=== PATIENT | female | born 1990 | race African-American/Black ===

== ENCOUNTER 2019-01-14 05:15 | Inpatient (IN) ==
[2019-01-14] MEDS ORDERED: BUTORPHANOL 2 MG/ML VIAL IV PRN (05:34)
[2019-01-14] MEDS ORDERED: ONDANSETRON 4 MG/2 ML VIAL IV PRN (05:34)
[2019-01-14] MEDS ORDERED: MEPERIDINE 50 MG/1 ML VIAL IV PRN (05:34)
[2019-01-14] MEDS: LACTATED RINGERS 1,000 ML IV SCH ×2 (05:50→13:14)
[2019-01-14 06:14] LABS: Basophils # 0.1 10*3/uL (0.0-0.2); Basophils % 0.6 % (0.0-0.8); Eosinophils # 0.3 10*3/uL (0.0-0.87); Eosinophils % 2.1 % (0.00-10.9); Hematocrit 29.3 VOL% (35.7-47.0); Hemoglobin 9.1 GM/DL (12.0-16.0); Immature Granulocytes % 2.3 %; Immature Granulocytes Absolute 0.33 #; Lymphocytes # 2.8 10*3/uL (1.4-4.0); Lymphocytes % 19.6 % (21.3-54.2); Mean Corpuscular HGB Conc 31.1 GM/DL (32-36); Mean Platelet Volume 11.2 FL (9.6-12.0); Monocytes % 11.3 % (1.7-12.7); Neutrophils % 64.1 % (38.7-73.9); Platelet Count 268 T/CUMM (130-400); Red Blood Count 3.53 MC/CUMM (3.8-5.5); Red Cell Distribution Width 14.9 % (9.3-17.3); White Blood Count 14.5 T/CUMM (4-12)
[2019-01-14] MEDS: OXYTOCIN/LR 20 UNIT/1,000 ML BAG IV SCH ×2 (06:19→18:16)
[2019-01-14 06:47] LABS: Alanine Aminotransferase 19 U/L (13-56); Albumin 2.7 G/DL (3.4-5.0); Alkaline Phosphatase 106 U/L (45-117); Aspartate Amino Transferase 17 U/L (0-37); Bilirubin,Total < 0.39 MG/DL (0.2-1.0); Blood Urea Nitrogen 8 MG/DL (7-18); Calcium 8.6 MG/DL (8.5-10.1); Glucose 84 MG/DL (74-106); Osmolality,Calculated 269.8 MOS/KG (273-304); Total Protein 6.8 G/DL (6.4-8.3)
[2019-01-14] MEDS ORDERED: FAMOTIDINE 20 MG/2 ML VIAL IV ONE (09:23)
[2019-01-14] MEDS ORDERED: diphenhydrAMINE 50 MG/1 ML VIAL IV PRN ×2 (09:23)
[2019-01-14] MEDS ORDERED: ePHEDrine 50 MG/ML AMP IV PRN (09:23)
[2019-01-14] MEDS ORDERED: LACTATED RINGERS 1,000 ML IV ONE (09:23)
[2019-01-14] MEDS ORDERED: NALOXONE 0.4 MG/ML VIAL IV PRN (09:23)
[2019-01-14] MEDS ORDERED: CITRIC ACID/SODIUM CITRATE 30 ML UDCUP PO ONE (09:23)
[2019-01-14] MEDS ORDERED: fentaNYL 2 MCG/ROPIV 0.2% EPID 100 ML EPIDURAL SCH (09:30)
[2019-01-14] MEDS ORDERED: miSOPROStol 200 MCG TABLET ONE (14:11)
[2019-01-14] MEDS ORDERED: METHYLERGONOVINE 0.2 MG/1 ML AMP ONE (14:11)
[2019-01-14] MEDS ORDERED: BISACODYL 10 MG SUPP RECTAL PRN (14:56)
[2019-01-14] MEDS ORDERED: MAGNESIUM HYDROXIDE SUSP 30 ML UDCUP PO PRN (14:56)
[2019-01-14] MEDS ORDERED: ACETAMINOPHEN 325 MG TABLET PO PRN (14:56)
[2019-01-14] MEDS ORDERED: LACTATED RINGERS 1,000 ML IV SCH (15:00)
[2019-01-14] MEDS ORDERED: KETOROLAC 15 MG/1 ML VIAL IV SCH (18:00)
[2019-01-14] MEDS: DOCUSATE SODIUM 100 MG CAPSULE PO SCH (20:50)
[2019-01-14] MEDS: IBUPROFEN 800 MG TABLET PO SCH (23:28)
[2019-01-15] MEDS: oxyCODONE/ACETAMINOPHEN 5-325 MG TABLET PO PRN ×3 (04:08→19:42)
[2019-01-15] MEDS: IBUPROFEN 800 MG TABLET PO SCH ×2 (08:54→16:24)
[2019-01-15] MEDS: DOCUSATE SODIUM 100 MG CAPSULE PO SCH ×2 (08:54→19:42)
[2019-01-15 09:42] LABS: Basophils # 0.1 10*3/uL (0.0-0.2); Basophils % 0.4 % (0.0-0.8); Eosinophils # 0.3 10*3/uL (0.0-0.87); Eosinophils % 1.7 % (0.00-10.9); Hematocrit 27.5 VOL% (35.7-47.0); Hemoglobin 8.6 GM/DL (12.0-16.0); Immature Granulocytes % 2.1 %; Immature Granulocytes Absolute 0.39 #; Lymphocytes # 3.4 10*3/uL (1.4-4.0); Lymphocytes % 18.1 % (21.3-54.2); Mean Corpuscular HGB Conc 31.3 GM/DL (32-36); Mean Corpuscular Volume 82.3 FL (87-102); Mean Platelet Volume 11.4 FL (9.6-12.0); Monocytes % 11.3 % (1.7-12.7); Neutrophils % 66.4 % (38.7-73.9); Platelet Count 229 T/CUMM (130-400); Red Blood Count 3.34 MC/CUMM (3.8-5.5); Red Cell Distribution Width 14.9 % (9.3-17.3); White Blood Count 18.5 T/CUMM (4-12)
[2019-01-15] MEDS ORDERED: IBUPROFEN 800 MG TABLET PO SCH (23:00)
[2019-01-16] MEDS ORDERED: MEASLES/MUMPS/RUBELLA VACCINE 0.5 ML VIAL SUBCUT ONE (01:23)
[2019-01-16 07:40] VITALS: BP 116/74
[2019-01-16] MEDS: DOCUSATE SODIUM 100 MG CAPSULE PO SCH (08:44)
[2019-01-16] MEDS: IBUPROFEN 800 MG TABLET PO SCH ×2 (08:45)
== END 2019-01-16 12:45 | disposition home or self-care (01) | DRG 560 ==
LOC: N.LDOUT 05:15 → N.LD 05:17 → N.OB 01-15 09:04
PROVIDERS: ADMIT Obstetrics & Gynecology; ATTEND Obstetrics & Gynecology